=== PATIENT | male | born 1945 | race Caucasian/White ===

== ENCOUNTER 2018-10-25 13:20 | Emergency (ER) | payer MEDICARE ==
[~2018-10-25] VITALS: Ht 165.1 cm; Wt 90.7 kg
[2018-10-25 13:20] VITALS: BP_SYST 147
[2018-10-25] MEDS ORDERED: ALEN70TA3 PO (13:52)
[2018-10-25] MEDS ORDERED: ASA81 PO (13:52)
[2018-10-25] MEDS ORDERED: PRADAXA (13:52)
[2018-10-25] MEDS ORDERED: CALC-823 PO (13:52)
[2018-10-25] MEDS ORDERED: PEDI1TAB28 PO (13:52)
[2018-10-25] MEDS ORDERED: METF1000 PO (13:52)
[2018-10-25] MEDS ORDERED: LOVENOX (13:52)
[2018-10-25] MEDS ORDERED: GLIP10TA PO (13:52)
[2018-10-25] MEDS ORDERED: ALBMDI INH (13:52)
[2018-10-25] MEDS ORDERED: LISI-600 PO (13:52)
[2018-10-25] MEDS ORDERED: TAMS-11 PO (13:52)
[2018-10-25] MEDS ORDERED: ALPR0.5T PO (13:52)
[2018-10-25] MEDS ORDERED: CELE200C PO (13:52)
[2018-10-25] MEDS ORDERED: HYDR25TA4 PO (13:52)
[2018-10-25] MEDS ORDERED: ASCO500T20 PO (13:52)
[2018-10-25] MEDS ORDERED: SIMV40TA2 PO (13:52)
[2018-10-25 14:26] LABS: ANION GAP 12 (5-15); CALCIUM 8.8 mg/dL (8.4-11.0); CHLORIDE 103 mmol/L (98-107); CREATININE 1.15 mg/dL (0.55-1.30); GLUCOSE 72 mg/dL (70-99); POTASSIUM 3.8 mmol/L (3.5-5.1); SODIUM SERUM 138 mmol/L (136-145); UREA NITROGEN, BLOOD 19 mg/dL (8-21)
[2018-10-25 16:00] VITALS: BP_SYST 139
== END 2018-10-25 16:00 | disposition home or self-care (01) ==
LOC: SED 13:20
DX: E11.649 Type 2 diabetes mellitus with hypoglycemia without coma (principal); I11.0 Hypertensive heart disease with heart failure; I50.9 Heart failure, unspecified; Z86.718 Personal history of other venous thrombosis and embolism; Z79.899 Other long term (current) drug therapy
CPT/HCPCS: 36415; 80048; 99283